=== PATIENT | female | born 1960 | race Caucasian/White ===

== ENCOUNTER 2023-12-06 13:52 | Outpatient (CLI) | payer OTHER ==
[~2023-12-06 13:52] MED LIST: LISINOPRIL10 MG; PNEU16DI2
== END 2023-12-06 14:01 | disposition home or self-care (01) ==
LOC: RAD 13:52
DX: M70.71 Other bursitis of hip, right hip (principal); M70.72 Other bursitis of hip, left hip; M54.51 Vertebrogenic low back pain; M54.41 Lumbago with sciatica, right side